=== PATIENT | female | born 1950 | race African-American/Black ===

== ENCOUNTER 2017-12-21 11:51 | Emergency (ER) | payer MEDICARE, BC ==
[2017-12-21 14:12] LABS: ADD MAN DIFF? NO
[2017-12-21 14:18] LABS: BASO % 1 % (0-3); EOS # 0.1 x10^3/uL (0.0-0.7); EOS % 1 % (0-3); HEMATOCRIT 40.8 % (36.0-47.0); HEMOGLOBIN 13.4 g/dL (12.0-15.5); LYMPH # 2.6 x10^3/uL (1.0-4.8); LYMPH % 31 % (24-48); MEAN CORPUSCULAR HEMOGLOBIN 29 pg (25-35); MEAN CORPUSCULAR HGB CONC 33 g/dL (31-37); MEAN CORPUSCULAR VOLUME 88 fL (79-100); MONO # 0.8 x10^3/uL (0.0-1.1); MONO % 9 % (0-9); NEUT # 4.9 x10^3uL (1.8-7.7); NEUT % 58 % (31-73); PLATELET COUNT 219 x10^3/uL (140-400); RED BLOOD COUNT 4.66 x10^6/uL (3.50-5.40); RED CELL DISTRIBUTION WIDTH 13.9 % (11.5-14.5); WHITE BLOOD COUNT 8.4 x10^3/uL (4.0-11.0)
[2017-12-21 14:40] LABS: ANION GAP 9 (6-14); BLOOD UREA NITROGEN 19 mg/dL (7-20); BUN/CREATININE RATIO 12 (6-20); CALCIUM 9.3 mg/dL (8.5-10.1); CARBON DIOXIDE 27 mmol/L (21-32); CHLORIDE 100 mmol/L (98-107); CREATININE 1.6 mg/dL (0.6-1.0); GFR 39.1; GLUCOSE 97 mg/dL (70-99); POTASSIUM 4.4 mmol/L (3.5-5.1); SODIUM 136 mmol/L (136-145)
[2017-12-21] MEDS: POLYETHYLENE GLYCOL 3350 17 GM PACKET. PO (14:43)
[2017-12-21] MEDS: SENNOSIDES 8.6 MG TABLET PO ×2 (14:44→14:45)
[2017-12-21] MEDS: DOCUSATE SODIUM 100 MG CAPSULE. PO (14:44)
[2017-12-21 14:53] LABS: ALBUMIN 3.4 g/dL (3.4-5.0); ALBUMIN/GLOBULIN RATIO 0.8 (1.0-1.7); ALK PHOS 115 U/L (46-116); ALT (SGPT) 17 U/L (14-59); AST (SGOT) 16 U/L (15-37); LIPASE 199 U/L (73-393); TOTAL BILIRUBIN 0.7 mg/dL (0.2-1.0); TOTAL PROTEIN 7.7 g/dL (6.4-8.2)
== END 2017-12-21 16:16 | disposition home or self-care (01) ==
LOC: ER 11:51
DX: R19.4 Change in bowel habit (principal); K59.00 Constipation, unspecified; I10 Essential (primary) hypertension; E78.00 Pure hypercholesterolemia, unspecified
CPT/HCPCS: 36415; 80053; 83690; 85025; 99284

== ENCOUNTER 2019-01-30 13:33 | Emergency (ER) | payer OTHER, BC ==
[~2019-01-30] VITALS: Ht 167.6 cm; Wt 67.6 kg
[~2019-01-30 13:33] MED LIST: BISA5TAB4 PO; HYDR50TA6 PO; OXYC10TA PO; POLY119P4 PO; SENN8.6T99 PO; VERA240C2 PO
[2019-01-30 13:40] VITALS: BP 159/80
[2019-01-30] MEDS ORDERED: CHLO15MO2 PO (14:18)
[2019-01-30] MEDS ORDERED: PENI500T PO (14:18)
[2019-01-30] MEDS ORDERED: HYDR-3164 PO (14:18)
--- NOTE | 2019-01-30 14:18 | PHYS DOC ---
Past Medical History Past Medical History: Cancer, Constipation, High Cholesterol, Hypertension Past Surgical History: Other Additional Past Surgical Histo: partial right lobectomy 2010, RIGHT KIDNEY REMOVAL Alcohol Use: None Drug Use: Marijuana Adult General Chief Complaint Chief Complaint: DENTAL PROBLEM HPI HPI Patient is a 68 year old [f__sex] who presents with [] Review of Systems Review of Systems Constitutional: Denies fever or chills [] Eyes: Denies change in visual acuity, redness, or eye pain [] HENT: Denies nasal congestion or sore throat [] Respiratory: Denies cough or shortness of breath [] Cardiovascular: No additional information not addressed in HPI [] GI: Denies abdominal pain, nausea, vomiting, bloody stools or diarrhea [] : Denies dysuria or hematuria [] Musculoskeletal: Denies back pain or joint pain [] Integument: Denies rash or skin lesions [] Neurologic: Denies headache, focal weakness or sensory changes [] Endocrine: Denies polyuria or polydipsia [] All other systems were reviewed and found to be within normal limits, except as documented in this note. Allergies Allergies Allergies Coded Allergies Type Severity Reaction Last Updated Verified No Known Drug Allergies 01/19/14 No Physical Exam Physical Exam Constitutional: Well developed, well nourished, no acute distress, non-toxic appearance. [] HENT: Normocephalic, atraumatic, bilateral external ears normal, oropharynx moist, no oral exudates, nose normal. [] Eyes: PERRLA, EOMI, conjunctiva normal, no discharge. [] Neck: Normal range of motion, no tenderness, supple, no stridor. [] Cardiovascular:Heart rate regular rhythm, no murmur [] Lungs & Thorax: Bilateral breath sounds clear to auscultation [] Abdomen: Bowel sounds normal, soft, no tenderness, no masses, no pulsatile masses. [] Skin: Warm, dry, no erythema, no rash. [] Back: No tenderness, no CVA tenderness. [] Extremities: No tenderness, no cyanosis, no clubbing, ROM intact, no edema. [] Neurologic: Alert and oriented X 3, normal motor function, normal sensory function, no focal deficits noted. [] Psychologic: Affect normal, judgement normal, mood normal. [] Current Patient Data Vital Signs Vital Signs Date Time Temp Pulse Resp B/P (MAP) Pulse Ox O2 Delivery O2 Flow Rate FiO2 01/30/19 13:40 98.3 69 15 159/80 (106) 98 Room Air 98.3 EKG EKG [] Radiology/Procedures Radiology/Procedures [] Course & Med Decision Making Course & Med Decision Making Pertinent Labs and Imaging studies reviewed. (See chart for details) [] Dragon Disclaimer Dragon Disclaimer This electronic medical record was generated, in whole or in part, using a voice recognition dictation system. Departure Departure Impression: Primary Impression: Dental abscess Disposition: 01 HOME, SELF-CARE Condition: STABLE Referrals: SHANELLE BURNETT (PCP) Patient Instructions: Dental Abscess, Smoking Cessation Additional Instructions: Avoid smoking. Drink plenty of water daily. Tylenol and/or ibuprofen as needed for pain as directed on container. If taking the Max tablets which are being prescribed avoid additional Tylenol. Keep your scheduled appointment with your dentist and if symptoms worsen or with concerns call and get a sooner appointment for reevaluation and further care. Scripts Chlorhexidine Gluconate (PERIDEX) 15 Ml Mouthwash 15 ML PO BID PRN for PAIN, #946 ML 0 Refills Prov: MEME ROBLES APRN 01/30/19 Hydrocodone/Apap 5-325 (NORCO 5-325 TABLET) 1 Each Tablet 1 TAB PO PRN Q6HRS PRN for PAIN, #12 TAB 0 Refills No driving or drinking alcohol while taking this medication Prov: MEME ROBLES APRN 01/30/19 Penicillin V Potassium (PENICILLIN V POTASSIUM) 500 Mg Tablet 1 TAB PO TID, #30 TAB 0 Refills Prov: MEME ROBLES APRN 01/30/19 MEME ROBLES APRN Jan 30, 2019 14:18
== END 2019-01-30 14:30 | disposition home or self-care (01) ==
LOC: ER 13:33
DX: K04.7 Periapical abscess without sinus (principal); E78.00 Pure hypercholesterolemia, unspecified; I10 Essential (primary) hypertension
CPT/HCPCS: 99283